=== PATIENT | female | born 1955 | race Two or more races ===

== ENCOUNTER 2017-10-17 08:16 | Outpatient (CLI) | payer BC | END 2017-10-17 09:41 | disposition home or self-care (01) | LOC: TOM 08:16 | DX: S06.0X0A Concussion without loss of consciousness, initial encounter (principal) ==

== ENCOUNTER 2017-12-04 11:53 | Outpatient (CLI) | payer BC | END 2017-12-05 10:43 | disposition home or self-care (01) | LOC: RAD 501 11:53 | DX: M79.671 Pain in right foot (principal); M25.532 Pain in left wrist ==

== ENCOUNTER → 2017-12-04 | Outpatient (CLI) | payer BC | END | disposition home or self-care (01) | LOC: MRI 10-31 07:51 | DX: S02.92XA Unspecified fracture of facial bones, initial encounter for closed fracture (principal) | CPT/HCPCS: 70551 ==

== ENCOUNTER 2017-12-26 13:07 | Outpatient (CLI) | payer BC | END 2017-12-26 13:20 | disposition home or self-care (01) | LOC: LAB 13:07 | DX: E55.9 Vitamin D deficiency, unspecified (principal); M85.9 Disorder of bone density and structure, unspecified; E21.3 Hyperparathyroidism, unspecified; E88.89 Other specified metabolic disorders; M81.8 Other osteoporosis without current pathological fracture; E83.42 Hypomagnesemia; E56.1 Deficiency of vitamin K; N39.0 Urinary tract infection, site not specified ==

== ENCOUNTER → 2018-06-10 | Outpatient (CLI) | payer BC | END | disposition home or self-care (01) | LOC: NUCLEAR 08:35 | DX: E21.3 Hyperparathyroidism, unspecified (principal); M81.0 Age-related osteoporosis without current pathological fracture | CPT/HCPCS: 78072; A9500 ==

== ENCOUNTER 2023-02-25 09:45 | Emergency (ER) | payer OTHER, BC ==
[~2023-02-25] VITALS: Ht 162.6 cm; Wt 113.4 kg
[2023-02-25] MEDS ORDERED: METOPROLOL SUCC50 MG PO (10:12)
[2023-02-25] MEDS ORDERED: PROPRANOLOL HCL60 MG PO (10:12)
[2023-02-25] MEDS ORDERED: DULOXETINE HCL60 MG PO (10:12)
[2023-02-25] MEDS ORDERED: ELIQUIS5 MG PO (10:13)
[2023-02-25] MEDS ORDERED: MIRTAZAPINE15 MG PO (10:13)
[2023-02-25] MEDS ORDERED: LISINOPRIL10 MG PO (10:13)
[2023-02-25] MEDS ORDERED: CLOPIDOGREL BIS75 MG PO (10:13)
[2023-02-25] MEDS ORDERED: SYNTHROID125 MCG PO (10:14)
[2023-02-25] MEDS ORDERED: CHILDREN'S ASPI81 MG PO (10:14)
[2023-02-25] MEDS ORDERED: AMIODARONE HCL100 MG PO (10:14)
[2023-02-26] MEDS ORDERED: PYRIDIUM100 M1 PO (12:52)
== END 2023-02-25 15:18 | disposition home or self-care (01) ==
LOC: ER 09:45
DX: N39.0 Urinary tract infection, site not specified (principal); B96.89 Other specified bacterial agents as the cause of diseases classified elsewhere

== ENCOUNTER 2023-02-26 10:41 | Emergency (ER) | payer OTHER, BC ==
[~2023-02-26] VITALS: Ht 162.6 cm; Wt 97.5 kg
[~2023-02-26 10:41] MED LIST: AMIODARONE HCL100 MG PO; CHILDREN'S ASPI81 MG PO; CLOPIDOGREL BIS75 MG PO; DULOXETINE HCL60 MG PO; ELIQUIS5 MG PO; LISINOPRIL10 MG PO; METOPROLOL SUCC50 MG PO; MIRTAZAPINE15 MG PO; PROPRANOLOL HCL60 MG PO; SYNTHROID125 MCG PO
[2023-02-26] MEDS ORDERED: PYRIDIUM100 M1 PO (12:52)
== END 2023-02-26 13:17 | disposition home or self-care (01) ==
LOC: ER 10:41
DX: N39.0 Urinary tract infection, site not specified (principal); I10 Essential (primary) hypertension; E03.9 Hypothyroidism, unspecified

== ENCOUNTER 2023-02-28 14:04 | Inpatient (IN) | payer OTHER, BC ==
[~2023-02-28] VITALS: Ht 162.6 cm; Wt 97.5 kg
[~2023-02-28 14:04] MED LIST changes: +PYRIDIUM100 M1 PO
--- NOTE | 2023-02-28 14:10 | NUR ---
SE RECIBE PTE A;ERTA Y OREINTADA X3 PTE REFIERE TENER DOLOR ABDOMIANL EN LA MANANA DE HOY SE JOSY VITALES Y SE AGNIESZKA EN OBSERVACION.
--- NOTE | 2023-02-28 14:24 | NUR ---
PTE EVALUADO POR EL DR FREIRE QUIEN ORDENA EL TX. MR E MERCEDES ORIENTA SOBRE EL TX ORDENADO, LO CUAL REFIERE ENTENDER Y REALIZA PRUEBAS DE LABORATORIO ESA ORDEN MEDICA Y SIGUIENDO MEDIDAS ASEPTICAS.
--- NOTE | 2023-02-28 23:16 | NUR ---
SE RECIBE PTE ALERTA Y ORIENTADA X3 EN WING BAJA CON BARANDAS ELEVADAS POR SEGURIDAD. PTE CON BUEN PATRON RESPIRATORIO. PEND CONS. DR.A ALAS
[2023-03-03] MEDS ORDERED: SUMATRIPTAN SU100 MG (08:48)
== END 2023-03-03 21:13 | disposition home or self-care (01) | DRG 690 ==
LOC: ER 14:04 → MEDI 23:49 → MEDJ 03-02 09:51 → MEDI 03-02 09:52
PROVIDERS: ADMIT Specialist; ATTEND Specialist
PROC: BW21ZZZ Computerized Tomography (CT Scan) of Abdomen and Pelvis (ICD-10-PCS; principal; 2023-02-28)
DX: N39.0 Urinary tract infection, site not specified (principal); I10 Essential (primary) hypertension; E03.9 Hypothyroidism, unspecified